=== PATIENT | female | born 1975 | race Caucasian/White ===

== ENCOUNTER 2021-05-17 09:39 | Day surgery (SDC) | payer BC ==
[2021-05-17] MEDS ORDERED: Ringers Lactate 1,000 ML IV ONE (11:16)
[2021-05-17] MEDS ORDERED: ACETAMINOPHEN 500 MG TAB ONE (11:50)
[2021-05-17] MEDS ORDERED: CELECOXIB 100 MG CAPSULE ONE (11:50)
[2021-05-17] MEDS ORDERED: BUPIVACAINE 0.25% PF 10 ML VIAL ONE ×2 (14:18→15:08)
[2021-05-17] MEDS: CEFAZOLIN/NS 1gm 1 GM/50 ML BAG ONE ×2 (14:27→14:36)
[2021-05-17] MEDS ORDERED: propofoL 200 MG/20 ML VIAL IV ONE (14:44)
[2021-05-17] MEDS ORDERED: LIDOCAINE 1% MPF 30 ML VIAL ONE (14:45)
[2021-05-17] MEDS ORDERED: FENTANYL CITR 100 MCG/2 ML ONE (14:45)
--- NOTE | 2021-05-17 14:51 | P.OP ---
Preoperative diagnosis: Right posterior Back Sebaceous Cyst Postoperative diagnosis: Right posterior Back Sebaceous Cyst Primary procedure: Wide excision of Right posterior Back Sebaceous Cyst Anesthesia: MAC + Local Estimated blood loss: <5cc Specimen: Right posterior Back Sebaceous Cyst Findings: ~4.5cm round sebaceous cyst to the fascia over muscle Complications: None Transferred to: Recovery Room Condition: Good
[2021-05-17] MEDS ORDERED: ONDANSETRON 4 MG/2 ML VIAL ONE (14:59)
[2021-05-17] MEDS ORDERED: KETOROLAC 30 MG/ML INJ ONE (15:00)
[2021-05-17] MEDS ORDERED: dexAMETHasone 10 MG/ML VIAL ONE (15:00)
[2021-05-17 15:52] VITALS: O2SAT 97
[2021-05-17 16:05] VITALS: BP 152/85; TEMP 97.8
--- NOTE | 2021-05-18 01:27 | OP ---
Date of Procedure: 05/17/2021 Surgeon: John Post MD, Preoperative Diagnosis: Right posterior back sebaceous cyst. Postoperative Diagnosis: Right posterior back sebaceous cyst. Procedure Performed: Wide excision of right posterior back sebaceous cyst. Anesthesia: MAC plus local with 0.25% Marcaine without epinephrine. Estimated Fluid Loss: 5 cc. Specimen: Right posterior sebaceous cyst from shoulder blade region. Findings: Approximately 4.5 cm round sebaceous cyst extending to the fascia overlying the muscle. Complications: None. Disposition: The patient was transferred to recovery room in good condition. Procedure In Detail: After informed was obtained, patient was brought to the operating room, prepped and draped in usual fashion after adequate anesthesia was achieved. An area of the right shoulder b lade was anesthetized with 0.25% Marcaine, sharply incised down through the subcutaneous tissues. An ellipse of skin was taken out over an obvious draining sebaceous cyst. Circumferential dissection w as performed using a combination of electrocautery and blunt dissection to remove a large sebaceous c yst approximately 4.5 cm round with a large amount of sebaceous material. The capsule was removed in its entirety. It was extending all the way to the level of the fascia overlying the muscle. This w as removed en bloc. The area was then copiously irrigated and hemostasis was achieved with electroca utery after the specimen was removed and sent off for pathologic examination. The area was irrigated once again. No additional hemostatic measure was required. The deep dermal layer was then closed u sing Vicryl in interrupted fashion and skin was closed with a 4-0 Monocryl in a running fashion with Dermabond placed over top. The patient tolerated the procedure well without evidence any complicatio ns, transferred to PACU in good condition. All counts were correct at the end of the case. CORNELIA/VICKY Voice ID: [id number] Report ID: [id number]
== END 2021-05-17 16:00 | disposition home or self-care (01) ==
LOC: OR 09:39
PROVIDERS: ATTEND Surgery
PROC: 0JB70ZZ Excision of Back Subcutaneous Tissue and Fascia, Open Approach (ICD-10-PCS; 2021-05-17)
PROC: 0JQ70ZZ Repair Back Subcutaneous Tissue and Fascia, Open Approach (ICD-10-PCS; principal; 2021-05-17 12:15)
DX: L72.0 Epidermal cyst (principal); Z20.822 Contact with and (suspected) exposure to COVID-19
CPT/HCPCS: 88304; 11406; 12032; U0003; J2704; J3010; J1100; J0690; J7120; J2405